=== PATIENT | female | born 1965 | race Caucasian/White ===

== ENCOUNTER 2016-10-26 18:14 | Emergency (ER) | payer BC, OTHER ==
[~2016-10-26] VITALS: Ht 180.3 cm; Wt 68.0 kg
--- NOTE | ~2016-10-26 | EKG ---
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1965 Requested By: Mary Theodore Order Number: [id number] MD: Hugo Amezquita Measurements Intervals [place] Rate: 51 P: 12 [place]: 198 QRS: 39 QRSD: 94 T: 34 QT: 496 QTc: 457 Interpretive Statements Sinus bradycardia Otherwise no significant abnormality Compared to ECG 05/19/2016 03:17:27 No significant change was found Electronically Signed On 10-27-2016 8:35:39 CDT by Hugo Amezquita [email or web address] <ELECTRONICALLY SIGNED> By: Hugo Amezquita MD, [facility] 10/27/16 0835 [id number] [id number] Hugo Amezquita MD, FACC /EPI
[~2016-10-26 18:14] MED LIST: ACETAMINOPHEN-1 EAC1 PO; ADDERALL 10 MG10 MG PO; AMOXICILLIN 50500 M1 PO; AMPHETAMINE SAL10 MG PO; APAP/CODEINE ELI5 M1 OR; ASPIR 8181 M1 PO; ASPIR 8181 MG PO; AZITHROMYCIN250 MG PO; BACTRIM DS TAB1 EACH PO; CIPROFLOXIN HC2.5 M1 OPHTHALMIC; CLONAZEPAM; CLONAZEPAM 1 MG1 M1 PO; ERYTHROMYCIN E3.5 G1 OP; FERRO-TIME325 MG PO; GEODON20 MG PO; GEODON80 MG PO; HYDROCODON-ACE1 EAC7 PO; HYDROCODONE-AP1 EAC6 PO; IMDUR 30 MG TAB30 M1 PO; IRON325 PO; KEFLEX500 MG PO; KLONOPIN1 MG PO; LEVAQUIN 500 M500 MG PO; LEXAPRO20 MG PO; LIPITOR20 MG PO; NICOTINE TRANSD14 M1 TD; NITROGLYCERIN0.4 MG SUBLING; NORCO 5-325 TA1 EACH PO; OLANZAPINE5 MG PO; PERCOCET 5-3251 EACH PO; PHENERGAN 25 MG25 M1 PO; PHENERGAN50 MG RC; PLAVIX 75 MG TA75 M1 PO; PRILOSEC 20 MG20 MG PO; PROMS25 WY RECTAL; PROTONIX40 M4 PO; TOBREX5 ML OPHTHALMIC; TRAMADOL 50 MG50 MG PO; TYLENOL325 MG PO; VITAMIN B-12100 MC1 PO; VYVANSE10 MG PO; VYVANSE50 MG; VYVANSE50 MG PO; XANAX1 MG PO; ZOFRAN ODT4 MG PO; ZOFRAN ODT8 MG PO; ZOFRAN4 MG PO; ZOLOFT25 MG PO; ZOLOFT50 MG PO; ZYPREXA 5 MG TAB5 M1 PO; ZYPREXA5 MG PO
[2016-10-26] MEDS ORDERED: ASPIR 8181 MG PO (19:15)
[2016-10-26 19:30] LABS: ABSOLUTE NEUTROPHILS 4.3 thou/uL (1.4-8.2); BASOPHILS 0.5 % (0.0-2.0); EOSINOPHILS 1.2 % (0.0-3.0); HEMATOCRIT 37.9 % (37.0-47.0); HEMOGLOBIN 12.8 gm/dL (12.0-15.0); LYMPHOCYTES 15.7 % (24.0-44.0); MCH 29.2 pg (26.0-34.0); MCHC 33.7 g/dL (28.0-37.0); MCV 86.6 fL (80.0-100.0); PLATELET COUNT 196 thou/uL (150-400); POLYS 73.6 % (36.0-66.0); RBC 4.38 mil/uL (4.20-5.00); RDW 13.5 % (10.5-14.5); WBC 5.8 thou/uL (4.0-11.0)
[2016-10-26 19:32] LABS: MANUAL DIFF NO
[2016-10-26 19:37] LABS: ANION GAP 8 mmol/L (7-16); BUN 12 mg/dL (7-18); CHLORIDE 104 mmol/L (98-107); CO2 28 mmol/L (21-32); CREATININE 0.8 mg/dL (0.6-1.0); GLUCOSE 113 mg/dL (74-106); POTASSIUM 4.2 mmol/L (3.5-5.1); SODIUM 140 mmol/L (136-145)
[2016-10-26 19:44] LABS: ALBUMIN 3.7 g/dL (3.4-5.0); ALKALINE PHOSPHATASE 100 U/L (46-116); SGOT 36 U/L (15-37); SGPT 31 U/L (30-65); TOTAL BILIRUBIN 0.2 mg/dL (<0.1-1.0); TROPONIN-I < 0.04 ng/mL (<0.04-0.07)
[2016-10-26] MEDS ORDERED: PROMS25 WY RECTAL (20:00)
[2016-10-26] MEDS ORDERED: ONDANSETRON HCL4 M2 PO (20:00)
[2016-10-26 20:08] VITALS: BP 134/72
== END 2016-10-26 20:08 | disposition home or self-care (01) ==
LOC: ER 18:14
PROVIDERS: Physician Assistant
DX: R10.9 Unspecified abdominal pain (principal); R11.2 Nausea with vomiting, unspecified; F41.9 Anxiety disorder, unspecified; F32.9 Major depressive disorder, single episode, unspecified; Z90.49 Acquired absence of other specified parts of digestive tract; Z88.8 Allergy status to other drugs, medicaments and biological substances; Z88.6 Allergy status to analgesic agent; Z88.5 Allergy status to narcotic agent; F17.210 Nicotine dependence, cigarettes, uncomplicated

== ENCOUNTER 2016-11-28 22:50 | Inpatient (IN) | payer BC, OTHER ==
[~2016-11-28] VITALS: Ht 180.3 cm; Wt 68.0 kg
--- NOTE | ~2016-11-28 | D ---
[facility] [place] [address] DISCHARGE SUMMARY Name: RULA RADFORD Room #: 310-P [facility] .R.#: [id number] Admission: 11/29/16 Attend Phys: Nimesh Jaramillo MD Discharge: 12/02/16 Date of : 67 Report #: [id number] THIS REPORT FOR: //name// CC: Nimesh Jaramillo DATE OF SERVICE: 12/02/2016 FINAL DIAGNOSES: 1. Acute pancreatitis. 2. Coronary artery disease. 3. Anxiety. HOSPITAL COURSE: The patient was admitted with abdominal pain, nausea and vomiting. Lipase was elevated and she was treated symptomatically for pancreatitis. GI service followed her, but no new recommendations for invasive procedures. There did not seem to be any ascending toxins or medications to precipitate the episode. With conservative treatment, she improved dramatically. By the time of discharge, she was tolerating a regular diet with no nausea, vomiting. He lipase normalized. She did have an episode of sinus bradycardia related to a dose of Dilaudid which were discontinued. PHYSICAL EXAMINATION: GENERAL: On the day of discharge, she was awake and alert, resting in bed and in no distress. VITAL SIGNS: Temperature is 37.1, pulse 42, respirations 16, blood pressure 154/69, O2 sat 99% on room air. LUNGS: Clear. HEART: Regular. ABDOMEN: Soft. EXTREMITIES: Showed no edema. DISPOSITION: She will be discharged to home with diet and activity as tolerated. Follow up with me in 3 weeks. 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 Medications will be Adderall, clonazepam, sertraline and her Tylenol No. 3 as needed for pain. She follows up with her psychiatrist for her anxiety medications. I have asked her to discontinue Xanax. <ELECTRONICALLY SIGNED> By: Nimesh Jaramillo MD 12/02/16 [phone] Nimesh Jaramillo MD /nt
--- NOTE | ~2016-11-28 | H ---
[facility] [place] [address] HISTORY AND PHYSICAL Name: RULA RADFORD Room #: 310-P ADM IN M.R.#: [id number] Admission: 11/29/16 Attend Phys: Nimesh Jaramillo MD Discharge: Date of : 67 Report #: [id number] THIS REPORT FOR: //name// CC: Nimesh Jaramillo DATE OF SERVICE: 11/29/2016 ATTENDING PHYSICIAN: Nimesh Jaramillo MD. CHIEF COMPLAINT: Abdominal pain with nausea, vomiting. HISTORY OF PRESENT ILLNESS: The patient is a 51-year-old female, who presented to the Emergency Department with complaints of abdominal pain of sudden onset and nausea, vomiting. The patient also reported that she had profuse diarrhea about 2-3 hours prior to presentation to the hospital. She reported that the pain was 10/10 in severity and was localized to the central abdomen area. She did report that she has history of pancreatitis, but the pain was worse this time. She generally finds relief with a shot of Dilaudid. 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 The patient did have a history of heart attack a couple of years ago and had 2 stents placed. The patient currently is taking aspirin and stopped taking the Plavix because of excessive menstrual bleeding. The patient has not noticed any blood in her stools. She does report that she continued to have abdominal pain and nausea. The patient is now being admitted to the hospital and continues to have abdominal pain. PAST MEDICAL HISTORY: Significant for history of pancreatitis, anxiety, myocardial infarction, coronary artery disease, and depression. PAST SURGICAL HISTORY: , coronary stent placement and gallbladder removal in 1999. ALLERGIES: She is known to be allergic to GLUTEN, ASPIRIN, HYDROCODONE. MEDICATIONS: She was currently on Zofran, Tylenol No. 3, Phenergan suppositories, clonazepam, sertraline, nitroglycerin p.r.n., Xanax and Adderall along with aspirin Thursday, Thursday and Thursday. SOCIAL HISTORY: The patient does continue to smoke. She has stopped drinking alcohol. Does not do any recreational drugs. REVIEW OF SYSTEMS: She denied having any chest pain or breathing difficulty. Denied having any headache, visual symptoms or any focal neurological deficits. Did not complain of any urinary symptoms and had not noticed any blood in her stools. [address] [address] HISTORY AND PHYSICAL Name: RULA RADFORD Room #: 310-P [facility] M.R.#: [id number] Admission: 11/29/16 Attend Phys: Nimesh Jaramillo MD Discharge: Date of : 67 Report #: [id number] PHYSICAL EXAMINATION: GENERAL: Pleasant, middle-aged lady, was resting in bed. She appeared to be in mild distress secondary to abdominal pain. She was awake, alert, oriented to place and person. VITAL SIGNS: She was afebrile with pulse of 60 per minute and regular, respiratory rate of 16, blood pressure was 110/60. HEENT: There was no pallor, no icterus. Mucosa was moist. There were no icterus noted. NECK: Supple. LUNGS: Clear to auscultation bilaterally with no wheezing or crackles. HEART: First and second sound is normal. ABDOMEN: The patient had diffuse tenderness. There was no guarding or rigidity. Bowel sounds were sluggish. EXTREMITIES: Did not reveal any edema. NEUROLOGIC: Cranial nerves are normal. Speech was normal. The patient was moving all 4 extremities equally and normally. LABORATORY DATA: On admission showed a sodium of 139, potassium 3.1, chloride 101, bicarbonate of 26, BUN of 14, creatinine of 0.9, glucose was 146, lactic acid level was 1.1, calcium 8.4, magnesium 2.2, bilirubin was 0.5. AST was 24, ALT of 24, alkaline phosphatase was 82, albumin 4.3, lipase was 1355. Protime was 10.5 with INR 1. White cell count was 14,000, hemoglobin 12.6, hematocrit 38.1 and a platelet count of 221. X-ray of the abdomen showed nonspecific small bowel pattern with no overt obstruction. Rectal examination done in the ER showed stools which were guaiac positive. ASSESSMENT: 1. Acute pancreatitis. 2. Heme-positive stools. 3. Coronary artery disease. PLAN: To admit her to the hospital. We will keep on IV fluids and try and control her pain. We will start her on Dilaudid for pain control and also have a GI consultation and check ultrasound of the abdomen. The patient to be started on soft diet. <ELECTRONICALLY SIGNED> By: Jaime Boothe MD 11/30/16 0824 0946 1251 Jaime Boothe MD /nt
[~2016-11-28 22:50] MED LIST changes: +ONDANSETRON HCL4 M2 PO
[2016-11-28 23:05] VITALS: BP 111/63
[2016-11-28 23:39] LABS: BASOPHILS 0.3 % (0.0-2.0); EOSINOPHILS 0.8 % (0.0-3.0); HEMATOCRIT 38.1 % (37.0-47.0); HEMOGLOBIN 12.6 gm/dL (12.0-15.0); LYMPHOCYTES 14.3 % (24.0-44.0); MCH 29.1 pg (26.0-34.0); MONOCYTES 5.8 % (1.0-8.0); PLATELET COUNT 221 thou/uL (150-400); POLYS 78.8 % (36.0-66.0); RBC 4.33 mil/uL (4.20-5.00); RDW 14.1 % (10.5-14.5)
[2016-11-28 23:41] LABS: MANUAL DIFF NO
[2016-11-28 23:46] LABS: CALCIUM 8.4 mg/dL (8.5-10.1); CREATININE 0.9 mg/dL (0.6-1.0); POTASSIUM 3.1 mmol/L (3.5-5.1)
[2016-11-28 23:50] LABS: ALBUMIN 4.3 g/dL (3.4-5.0); APTT 23.8 Seconds (24.5-32.8); DIRECT BILIRUBIN 0.1 mg/dL (<0.1-0.3); MAGNESIUM 2.2 mg/dL (1.8-2.4); PROTIME 10.5 Seconds (9.3-11.4); TOTAL BILIRUBIN 0.5 mg/dL (<0.1-1.0)
[2016-11-29 01:46] VITALS: BP 120/69
[2016-11-29 04:55] VITALS: BP 121/69
[2016-11-29 05:26] VITALS: BP 132/74
[2016-11-29 08:00] VITALS: BP 104/66
[2016-11-29 16:00] VITALS: BP 107/68
[2016-11-29] MEDS ORDERED: ACYCLOVIR 400400 MG PO (16:11)
[2016-11-29 19:27] VITALS: BP 94/67
[2016-11-30 03:50] VITALS: BP 89/59
[2016-11-30 07:20] VITALS: BP 107/67
[2016-11-30 14:08] LABS: HEMATOCRIT 31.8 % (37.0-47.0); HEMOGLOBIN 10.8 gm/dL (12.0-15.0); MCH 29.9 pg (26.0-34.0); MCV 88.1 fL (80.0-100.0); RBC 3.61 mil/uL (4.20-5.00); RDW 13.7 % (10.5-14.5); WBC 6.7 thou/uL (4.0-11.0)
[2016-11-30 14:20] LABS: ALBUMIN 3.3 g/dL (3.4-5.0); CALCIUM 7.5 mg/dL (8.5-10.1); CREATININE 0.6 mg/dL (0.6-1.0); POTASSIUM 3.7 mmol/L (3.5-5.1); TOTAL BILIRUBIN 0.4 mg/dL (<0.1-1.0); TOTAL PROTEIN 5.9 g/dL (6.4-8.2)
[2016-11-30 20:00] VITALS: BP 112/67
[2016-12-01 00:53] LABS: AMP/METHAMP Negative (Negative); BARBITURATES Negative (Negative); BENZODIAZEPINES POSITIVE (Negative); COCAINE Negative (Negative); METHADONE Negative (Negative); OPIATES POSITIVE (Negative); PCP Negative (Negative); THC POSITIVE (Negative)
[2016-12-01 04:51] VITALS: BP 124/65
[2016-12-01 05:22] LABS: BASOPHILS 0.4 % (0.0-2.0); EOSINOPHILS 0.6 % (0.0-3.0); HEMATOCRIT 32.9 % (37.0-47.0); HEMOGLOBIN 11.2 gm/dL (12.0-15.0); LYMPHOCYTES 18.8 % (24.0-44.0); MCV 88.2 fL (80.0-100.0); MONOCYTES 8.1 % (1.0-8.0); PLATELET COUNT 163 thou/uL (150-400); POLYS 72.1 % (36.0-66.0); RBC 3.73 mil/uL (4.20-5.00); RDW 13.8 % (10.5-14.5); WBC 5.6 thou/uL (4.0-11.0)
[2016-12-01 05:27] LABS: MANUAL DIFF NO
[2016-12-01 05:45] LABS: ALBUMIN 3.3 g/dL (3.4-5.0); CALCIUM 7.7 mg/dL (8.5-10.1); CREATININE 0.7 mg/dL (0.6-1.0); POTASSIUM 3.7 mmol/L (3.5-5.1); TOTAL BILIRUBIN 0.4 mg/dL (<0.1-1.0)
[2016-12-01 08:10] VITALS: BP 113/59
[2016-12-01 16:16] VITALS: BP 155/80
[2016-12-01 20:10] VITALS: BP 145/85
[2016-12-02 04:40] VITALS: BP 144/82
[2016-12-02 06:40] LABS: CALCIUM 8.2 mg/dL (8.5-10.1); CREATININE 0.6 mg/dL (0.6-1.0)
[2016-12-02 08:50] VITALS: BP 154/69
[2016-12-02 10:40] VITALS: BP 154/69
== END 2016-12-02 11:26 | disposition home or self-care (01) | DRG 440 ==
LOC: ER 22:50 → EROBS 11-29 00:55 → 3N 11-29 00:55
PROVIDERS: Emergency Medicine; Internal Medicine; Internal Medicine Gastroenterology; Internal Medicine Geriatric Medicine
DX: K85.80 Other acute pancreatitis without necrosis or infection (principal); R78.89 Finding of other specified substances, not normally found in blood; B00.9 Herpesviral infection, unspecified; I25.10 Atherosclerotic heart disease of native coronary artery without angina pectoris; F41.9 Anxiety disorder, unspecified; F17.210 Nicotine dependence, cigarettes, uncomplicated; E87.6 Hypokalemia; F43.10 Post-traumatic stress disorder, unspecified; R19.5 Other fecal abnormalities; R19.7 Diarrhea, unspecified; F32.9 Major depressive disorder, single episode, unspecified; K58.9 Irritable bowel syndrome, unspecified; R00.1 Bradycardia, unspecified; T40.2X5A Adverse effect of other opioids, initial encounter; Y92.89 Other specified places as the place of occurrence of the external cause; Z87.898 Personal history of other specified conditions; Z86.19 Personal history of other infectious and parasitic diseases; Z95.5 Presence of coronary angioplasty implant and graft; I25.2 Old myocardial infarction; Z90.49 Acquired absence of other specified parts of digestive tract; Z88.6 Allergy status to analgesic agent; Z91.018 Allergy to other foods; Z79.899 Other long term (current) drug therapy
CPT/HCPCS: 10096

== ENCOUNTER → 2016-12-30 | Outpatient (CLI) | payer BC, OTHER ==
[~2016-12-30] MED LIST changes: +ACYCLOVIR 400400 MG PO
== END ==
LOC: RAD 09:30
DX: Z12.31 Encounter for screening mammogram for malignant neoplasm of breast (principal)

== ENCOUNTER 2017-03-02 21:50 | Observation (INO) | payer BC, OTHER ==
[~2017-03-02] VITALS: Ht 180.3 cm; Wt 81.1 kg
--- NOTE | ~2017-03-02 | H ---
[facility] [place] [address] HISTORY AND PHYSICAL Name: RULA RADFORD Room #: 218-P [facility] M..#: [id number] Admission: 03/02/17 Attend Phys: Jaime Boothe MD Discharge: Date of : 67 Report #: [id number] THIS REPORT FOR: //name// CC: Nimesh Boothe DATE OF SERVICE: 03/03/2017 CHIEF COMPLAINT: Chest pain. HISTORY OF PRESENT ILLNESS: The patient is a 52-year-old female who was admitted to the Emergency Room with chest pain. She experienced sharp upper left-sided chest pain throughout the day, averaging about 2 minutes at a time. She felt some pain across her neck and at one point she felt pain shooting down her arms. She did not have any shortness of breath, nausea or vomiting. She does have a history of coronary artery disease and myocardial infarction in approximately 2014 that required cardiac cath with stent placement. I believe she was treated at [place] for that acute illness. PAST MEDICAL HISTORY: Pancreatitis, coronary artery disease, anxiety, depression, history of NSTEMI in August 2014 with stents. She has remote history of alcohol use, says she has been sober for 23 years. PAST SURGICAL HISTORY: She has had a cholecystectomy. FAMILY HISTORY: Noncontributory. SOCIAL HISTORY: No chronic tobacco use. ALLERGIES: ASPIRIN cause nosebleed, HYDROCODONE cause nausea. MEDICATIONS: Tylenol No. 3, clonazepam, sertraline, acyclovir, Adderall, aspirin. REVIEW OF SYSTEMS: She denies headache, chest pain, shortness of breath, abdominal pain, nausea, vomiting, diarrhea, constipation, dysuria, syncope. OBJECTIVE: VITAL SIGNS: Blood pressure 105/72, temperature 36.8, pulse 76, respirations 15, O2 sat 99% on room air. GENERAL: She is awake and alert, in no distress, lying in bed. HEAD AND NECK: Unremarkable. LUNGS: Clear. HEART: Regular. ABDOMEN: Soft, normoactive bowel sounds. EXTREMITIES: No edema. [facility] [address] [place] [address] HISTORY AND PHYSICAL Name: RULA RADFORD COMPA Room #: 218-P [facility] M.R.#: [id number] Admission: 03/02/17 Attend Phys: Jaime Boothe MD Discharge: Date of : 67 Report #: [id number] NEUROLOGIC: Intact. Troponin is negative x 2. ASSESSMENT: 1. Chest pain. 2. Coronary artery disease. PLAN: She has been seen by Dr. Agustin and plans are for nuclear stress test. <ELECTRONICALLY SIGNED> By: Nimesh Jaramillo MD 03/03/17 1035 0954 1027 Nimesh Jaramillo MD /nt
--- NOTE | ~2017-03-02 | EKG ---
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 : 1965 Requested By: Fausto Kohli Order Number: [id number] MD: Hugo Amezquita Measurements Intervals [place] Rate: 69 P: 53 [place]: 183 QRS: 39 QRSD: 93 T: 51 QT: 415 QTc: 445 Interpretive Statements Sinus rhythm No significant abnormality Compared to ECG 10/26/2016 18:38:54 Sinus bradycardia no longer present Electronically Signed On 03-03-2017 8:36:30 CDT by Hugo Amezquita [email or web address] <ELECTRONICALLY SIGNED> By: Hugo Amezquita MD, [facility] 03/03/17 0836 48 48 Hugo Amezquita MD, [facility] /EPI
[2017-03-02 21:50] VITALS: BP 105/72
[2017-03-02 22:12] LABS: ABSOLUTE NEUTROPHILS 4.6 thou/uL (1.4-8.2); BASOPHILS 0.6 % (0.0-2.0); EOSINOPHILS 1.4 % (0.0-3.0); HEMATOCRIT 35.5 % (37.0-47.0); HEMOGLOBIN 11.9 gm/dL (12.0-15.0); LYMPHOCYTES 21.1 % (24.0-44.0); MCH 29.4 pg (26.0-34.0); MCHC 33.4 g/dL (28.0-37.0); MCV 87.9 fL (80.0-100.0); MONOCYTES 8.1 % (1.0-8.0); PLATELET COUNT 247 thou/uL (150-400); POLYS 68.8 % (36.0-66.0); RBC 4.04 mil/uL (4.20-5.00); RDW 13.6 % (10.5-14.5); WBC 6.6 thou/uL (4.0-11.0)
[2017-03-02 22:21] LABS: ANION GAP 6 mmol/L (7-16); BUN 10 mg/dL (7-18); CALCIUM 8.7 mg/dL (8.5-10.1); CHLORIDE 101 mmol/L (98-107); CO2 28 mmol/L (21-32); CREATININE 0.7 mg/dL (0.6-1.0); GLUCOSE 116 mg/dL (74-106); POTASSIUM 3.7 mmol/L (3.5-5.1); SODIUM 135 mmol/L (136-145)
[2017-03-02 22:22] LABS: MANUAL DIFF NO
[2017-03-02 22:29] LABS: TROPONIN-I < 0.04 ng/mL (<0.04-0.07)
[2017-03-02 23:13] VITALS: BP 98/63
[2017-03-02 23:37] VITALS: BP 116/77
[2017-03-03 04:44] VITALS: BP 94/66
[2017-03-03 08:29] VITALS: BP 88/46
[2017-03-03 12:06] VITALS: BP 102/60
[2017-03-03 12:25] LABS: CHOLESTEROL 324 mg/dL (<200); HDL CHOLESTEROL 34 mg/dL (>40); LDL CHOLESTEROL 271 mg/dL (<100); TC:HDL 9.5 Ratio (Not establshd); TRIGLYCERIDE 95 mg/dL (<150); VLDL 19 mg/dL (<40)
[2017-03-03 16:56] VITALS: BP 94/54
== END 2017-03-03 17:58 | disposition home or self-care (01) ==
LOC: ER 21:50 → 2N 22:52 → EROBS 22:52 → 2N 23:23
PROVIDERS: Emergency Medicine; Nurse Practitioner Gerontology
DX: R07.89 Other chest pain (principal); I25.10 Atherosclerotic heart disease of native coronary artery without angina pectoris; I25.2 Old myocardial infarction; K85.90 Acute pancreatitis without necrosis or infection, unspecified; E78.5 Hyperlipidemia, unspecified; F41.9 Anxiety disorder, unspecified; F32.9 Major depressive disorder, single episode, unspecified; Z95.5 Presence of coronary angioplasty implant and graft; Z72.89 Other problems related to lifestyle; Z72.0 Tobacco use

== ENCOUNTER 2017-07-23 01:31 | Emergency (ER) | payer BC, OTHER ==
[~2017-07-23] VITALS: Ht 180.3 cm; Wt 70.3 kg
[2017-07-23] MEDS ORDERED: PREDNISONE 20 M20 MG PO (02:52)
[2017-07-23] MEDS ORDERED: ACETAMINOPHEN-1 EAC1 PO (02:52)
[2017-07-23 03:35] VITALS: BP 117/81
[2017-10-11] MEDS ORDERED: KLONOPIN1 MG PO (04:28)
[2018-02-25] MEDS ORDERED: PANCREAZE DR 41 EACH PO (00:19)
[2018-02-25] MEDS ORDERED: TRAMADOL 50 MG50 MG PO (02:53)
== END 2017-07-23 03:33 | disposition home or self-care (01) ==
LOC: ER 01:31
DX: M54.41 Lumbago with sciatica, right side (principal); F41.9 Anxiety disorder, unspecified; I25.2 Old myocardial infarction; F32.9 Major depressive disorder, single episode, unspecified; K85.90 Acute pancreatitis without necrosis or infection, unspecified; Z91.018 Allergy to other foods; Z88.6 Allergy status to analgesic agent; Z87.891 Personal history of nicotine dependence

== ENCOUNTER 2017-08-13 01:01 | Emergency (ER) | payer BC, OTHER ==
[~2017-08-13] VITALS: Ht 180.3 cm; Wt 74.8 kg
[~2017-08-13 01:01] MED LIST changes: +PREDNISONE 20 M20 MG PO
[2017-08-13 01:03] VITALS: BP 117/83
[2017-10-11] MEDS ORDERED: KLONOPIN1 MG PO (04:28)
[2018-02-25] MEDS ORDERED: PANCREAZE DR 41 EACH PO (00:19)
[2018-02-25] MEDS ORDERED: TRAMADOL 50 MG50 MG PO (02:53)
== END 2017-08-13 01:46 | disposition home or self-care (01) ==
LOC: ER 01:01
DX: M54.5 Low back pain (principal); F41.9 Anxiety disorder, unspecified; F32.9 Major depressive disorder, single episode, unspecified; Z88.6 Allergy status to analgesic agent; Z88.8 Allergy status to other drugs, medicaments and biological substances; Z87.891 Personal history of nicotine dependence